=== PATIENT | male | born 1990 | race Two or more races ===

== ENCOUNTER 2023-11-09 08:59 | Emergency (ER) | payer SELFPAY ==
[2023-11-09 09:01] VITALS: BP 115/53; PULSE 62; RESP 14; TEMP 37; O2SAT 98
--- NOTE | 2023-11-09 09:13 | W.ED.GENAD ---
Discharge Plan Disposition Patient Disposition: Home Condition: Stable Discharge Details Clinical Impression: Sprain of right ankle Primary Care Provider: None,None ED Provider: Cyrus Lundberg Home Meds and New Rx's Prescriptions: No Action naproxen [EC-Naprosyn] 500 mg tablet,delayed release (DR/EC) 500 mg PO Q12H PRN Discharge Instructions Instructions: Ankle Sprain ED Additional Instructions: You were seen in the emergency department for the sprain of your right ankle. There is no fracture seen on x-ray. Please partially weight-bear as tolerated, I am providing you with a short ankle brace to help with pain with movement. As well as crutches if you need them. Please rest, ice, compress and elevate your ankle often over the next few days. Please use therapeutic dosing of Tylenol (acetamenophen) & Advil (ibuprofen) in an alternating fashion as follows: Take 1000mg of Tylenol every 6 hours without missing doses- that is 4 times per day. Skilled Nursing in between the Tylenol dosings, take 400-600mg of Advil also on a 6 hour schedule, that is also 4 times per day. The daily maximum dosing of Tylenol is 4000mg, and the daily maximum dosing of Advil is 2400mg. This is safe to do for weeks. Please note that some common cold medications & prescription pain medications may contain acetamenophen and you need to read OTC drug labels and factor that in to maximum daily dosings. Please do not take multiple anti-inflammatories like Aleve and ibuprofen at the same time, choose 1. Please return to the emergency department for any signs of severe increasing pain and complete numbness distal to the injury, otherwise you may need to follow-up with orthopedics for any failure to improve in 2 to 3 weeks. Usted fue atendido en urgencias por un esguince en el tobillo derecho. No se observa fractura en la radiograf?a. Por favor, soporte parcialmente el peso seg?n lo tolere. Le proporciono lior tobillera corta para ayudarle con el dolor con el movimiento. As? nusrat muletas si las necesitas. Descanse, aplique hielo, comprima y eleve el tobillo con frecuencia tr los pr?ximos d?as. Utilice la dosis terap?utica de Tylenol (acetamenofeno) y Advil (ibuprofeno) de forma alterna de la siguiente manera: [place] 1000 mg de Tylenol cada 6 horas sin omitir dosis, es decir, 4 veces al d?a. A mitad de jesu entre las dosis de Tylenol, tome 400-600 mg de Advil tambi?n en un horario de 6 horas, es decir, tambi?n 4 veces al d?a. La dosis m?xima diaria de Tylenol es de 4000 mg y la dosis m?xima diaria de Advil es de 2400 mg. Es seguro hacerlo tr semanas. Tenga en cuenta que algunos medicamentos para el resfriado com?n y analg?sicos recetados pueden contener acetamenof?n y debe leer las etiquetas de los medicamentos de venta eduarda y tenerlo en cuenta en las dosis m?ximas diarias. No tome varios antiinflamatorios nusrat Aleve e ibuprofeno al mismo tiempo, elija 1. Regrese al departamento de emergencias si presenta cualquier signo de dolor intenso y creciente y entumecimiento total distal a la lesi?n; de lo contrario, es posible que deba realizar un seguimiento con un ortopedista si no mejora en 2 a 3 semanas. Referrals: [facility] [Provider Group] Discharge Data Discharge Date/Time-TO BE ENTERED AT DEPARTURE: 11/09/23 12:00 HPI General Date/Time Provider Initiated Documentation: 11/09/23 09:13. HPI Narrative: 33 year-old male presents to ED today by POV/wheelchair, [place]-speaking, with friend as reducing salon attendant with a chief complaint of R ankle/foot injury while playing soccer with friends this morning- someone stepped on his foot/ankle. Patient is R-foot dominant. Quality described as pain in the lateral ankle and forefoot with some swelling/bruising, no radiation to numbness/tingling, inability to move the foot or toes, proximal calf pain. Severity is described as moderate to severe. Palliating factors include nothing attempted yet. Provoking factors include nothing specific. Patient not anticoagulated. Related Data Home Medications ?Medication ?Instructions ?Recorded ?Confirmed naproxen 500 mg tablet,delayed 500 mg PO Q12H PRN 11/09/23 11/09/23 release (EC-Naprosyn) Allergies Allergy/AdvReac Type Severity Reaction Status Date / Time No Known Allergies Allergy Unverified 11/09/23 09:09 General Stated Complaint: Orthopedic EDY: 4 Review of Systems All systems reviewed & are unremarkable except as noted in HPI and below Exam Narrative Exam Narrative: GENERAL APPEARANCE: Well-nourished, non-toxic, awake and alert, atraumatic, no acute distress. SKIN: Warm, pink, dry, intact, without rashes/lesions/ulcerations. HEAD: Normocephalic, atraumatic, normal hair distribution for gender/age. EYES: Normal conjunctiva, no exudates on lids/lashes. ENT: Nares patent, no circumoral cyanosis, no facial swelling NECK: Supple, trachea midline, painless cervical ROM. LUNGS/CHEST: Non-labored respirations, normal A/P diameter, symmetrical expansion, no chest wall deformity HEART (CV/PV): Regular rate, no peripheral edema, no JVD. ABDOMEN: Soft, non-distended, no guarding. MSK: Normal ROM, no swelling/deformity to bilateral UEs or LEs, moving all extremities without weakness, no cyanosis, spine midline without tenderness, normal curvature. R LE: Swelling to the right lateral malleolus, able to plantar/dorsiflex with limited to pain, right dorsalis pedis pulse 2+, brisk capillary refill in all toes, no fibular head tenderness, mild ecchymosis around the lateral malleolus NEURO: Mental Status AAOx4 - alert to person, place, time, events No facial droop, no forehead involvement. Motor: No focal weakness - strength 5/5 in bilateral UEs and LEs, proximal and distal, symmetric. Sensory: sensation intact to light touch globally. Gait antalgic PSYCH: euthymic, cooperative, pleasant, appropriate speech Course Vital Signs Vital signs: Vital Signs Temperature 37.0 C 11/09/23 09:01 Pulse 62 11/09/23 09:01 Respiratory Rate 14 11/09/23 09:01 Blood Pressure 115/53 L 11/09/23 09:01 Pulse Oximetry 98 11/09/23 09:01 Temperature 37.0 C 11/09/23 09:01 Temperature Source Temporal Artery Scan 11/09/23 09:01 Pulse 62 11/09/23 09:01 Respiratory Rate 14 11/09/23 09:01 Respiratory Effort Normal 11/09/23 09:07 Blood Pressure 115/53 L 11/09/23 09:01 Pulse Oximetry 98 11/09/23 09:01 Pain Level 7 11/09/23 09:01 Medical Decision Making This dictation utilizes [id number] dictation software and may contain unedited grammatical errors. 33 year-old male presents to ED today by POV/wheelchair, [place]-speak, with friend as reducing salon attendant with a chief complaint of R ankle/foot injury while playing soccer with friends this morning- someone stepped on his foot/ankle. Patient is R-foot dominant. Quality described as pain in the lateral ankle and forefoot with some swelling/bruising, no radiation to numbness/tingling, inability to move the foot or toes, proximal calf pain. Severity is described as moderate to severe. Palliating factors include nothing attempted yet. Provoking factors include nothing specific. Patients' medical history: noncontributory. Family and social history: noncontributory. Pertinent exam findings / vital signs include R LE: Swelling to the right lateral malleolus, able to plantar/dorsiflex with limited to pain, right dorsalis pedis pulse 2+, brisk capillary refill in all toes, no fibular head tenderness, mild ecchymosis around the lateral malleolus. Differential / pathologies of concern include sprain/strain, fracture, contusion. Diagnostic studies of: -XR R ankle and foot-no acute fracture seen. Interventions of: -Walking boot and crutches as the patient has severe pain with ambulation. ED Course/Assessment/Plan: 33-year-old male presents with right foot and ankle pain, likely severe ankle sprain with negative x-ray, has severe pain with movement and ambulation, I did provide a short walking boot and crutches for patient comfort, recommend RICE therapy and therapeutic dosing Tylenol and ibuprofen with strict return criteria for signs of neurovascular compromise, recommend follow-up with orthopedics for any persistent pain past 2 to 3 weeks. Findings not consistent with fracture, NV Compromise. Disposition of Sprain of Right Ankle. Patient verbalized understanding of the plan and return to ED criteria and engaged in shared decision making. Medical Records Medical records reviewed: Yes I reviewed the patient's medical records. Imaging Data Radiologic Study: Attestation: I personally reviewed and interpreted this imaging study as follows: Imaging: X-Ray Radiologist's impression: Exam: XR Right Ankle Exam date and time: 11/09/2023 9:29 AM Age: 33 years old Clinical indication: Other: Soccer injury; R lat ankle \T\ forefoot TECHNIQUE: Imaging protocol: Radiologic exam of the right ankle. Views: 3 or more views. COMPARISON: No relevant prior studies available. FINDINGS: Bones/joints: No acute fracture or malalignment. Soft tissues: There is lateral soft tissue swelling. IMPRESSION: Lateral soft tissue swelling. Dictated and Authenticated by: Rodrick Dill MD. Radiologic Study #2: Attestation: I personally reviewed and interpreted this imaging study as follows: Imaging: X-Ray Radiologist's impression: Exam: XR Right Foot Exam date and time: 11/09/2023 9:30 AM Age: 33 years old Clinical indication: Other: Soccer injury; R lat ankle \T\ forefoot TECHNIQUE: Imaging protocol: Radiologic exam of the right foot. Views: 3 or more views. COMPARISON: CR XR ANKLE RT COMPLETE 11/09/2023 9:29 AM FINDINGS: Bones/joints: No acute fracture or dislocation. Soft tissues: Unremarkable. IMPRESSION: No acute fracture. Dictated and Authenticated by: Rodrick Dill MD. Quality:SDOH Health Related Social Needs: No Data to Display PFSH All Active Problems (Updated 11/09/23 @ 11:36 by CAMDEN Victor) Sprain of right ankle (Acute) Social History Smoking/Tobacco Use Status: Never Smoking risk assessment performed?: Yes Alcohol Intake: current Alcohol Intake frequency: 0-2 drinks per day Alcohol type: beer Drug use: Daily Substance use type: marijuana
--- NOTE | 2023-11-09 09:15 | DI.RAD_ITS ---
Exam(s) XR ANKLE RT COMPLETE EXAM: XR ANKLE RT COMPLETE CLINICAL HISTORY: soccer injury; R lat ankle forefoot. TECHNIQUE: 2D digital imaging was performed. COMPARISON: No exams were available for comparison FINDINGS: 3 views There is lateral soft tissue swelling but no fracture or widening the ankle mortise. Talar dome unre markable. Bone density normal. No degenerative changes. No osseous lesions. No tarsal coalition. IMPRESSION: Lateral soft tissue swelling. No osseous findings. DATA REPOSITORY: RADIATION DOSE DELIVERED:
--- NOTE | 2023-11-09 09:15 | DI.RAD_ITS ---
Exam(s) XR FOOT RT COMPLETE EXAM: XR FOOT RT COMPLETE CLINICAL HISTORY: soccer injury; R lat ankle forefoot. TECHNIQUE: 2D digital imaging was performed. COMPARISON: No exams were available for comparison FINDINGS: 3 views No evidence of fracture or diastasis of the Lisfranc joint. No radiopaque foreign bodies. Bone dens ity normal. No osseous lesions. No erosions. No pes planus. IMPRESSION: No acute osseous findings in the foot DATA REPOSITORY: RADIATION DOSE DELIVERED:
[2023-11-09] MEDS: Acetaminophen 500 MG TAB 1000 MG PO (09:26)
[2023-11-09] MEDS: Ketorolac 10 MG TAB PO (09:26)
--- NOTE | 2023-11-09 11:22 | DI.VRAD_ITS ---
PROCEDURE INFORMATION: Exam: XR Right Foot Exam date and time: 11/09/2023 9:30 AM Age: 33 years old Clinical indication: Other: Soccer injury; R lat ankle \T\ forefoot TECHNIQUE: Imaging protocol: Radiologic exam of the right foot. Views: 3 or more views. COMPARISON: CR XR ANKLE RT COMPLETE 11/09/2023 9:29 AM FINDINGS: Bones/joints: No acute fracture or dislocation. Soft tissues: Unremarkable. IMPRESSION: No acute fracture. Dictated and Authenticated by: Rodrick Dill MD. Ordering:ANTONIO Bridges MD
--- NOTE | 2023-11-09 11:22 | DI.VRAD_ITS ---
PROCEDURE INFORMATION: Exam: XR Right Ankle Exam date and time: 11/09/2023 9:29 AM Age: 33 years old Clinical indication: Other: Soccer injury; R lat ankle \T\ forefoot TECHNIQUE: Imaging protocol: Radiologic exam of the right ankle. Views: 3 or more views. COMPARISON: No relevant prior studies available. FINDINGS: Bones/joints: No acute fracture or malalignment. Soft tissues: There is lateral soft tissue swelling. IMPRESSION: Lateral soft tissue swelling. Dictated and Authenticated by: Rodrick Dill MD. Ordering:ANTONIO Bridges MD
== END 2023-11-09 12:00 | disposition home or self-care (01) ==
PROVIDERS: Emergency Provider Physician Assistant
DX: S93.401A Sprain of unspecified ligament of right ankle, initial encounter (principal); W50.0XXA Accidental hit or strike by another person, initial encounter; Y93.66 Activity, soccer; Y92.89 Other specified places as the place of occurrence of the external cause
CPT/HCPCS: 99283; 73610; 73630